=== PATIENT | female | born 1995 | race Hispanic/Latino ===

== ENCOUNTER 2024-12-04 14:54 | Emergency (ER) | payer OTHER ==
[~2024-12-04] VITALS: Ht 157.5 cm; Wt 64.3 kg
[2024-12-04] MEDS ORDERED: HOME MED LIST COMPLETE! XX SCH (15:35)
[2024-12-04 16:00] LABS: BASO # 0.1 10^3/uL (0.0-0.2); BASO % 1.0 % (0.0-1.0); EOS # 0.3 10^3/uL (0.0-0.5); EOS % 3.9 % (0.0-3.0); LYMPH # 2.8 10^3/uL (1.5-5.0); LYMPH % 39.0 % (24.0-44.0); MONO # 0.5 10^3/uL (0.0-0.8); MONO % 6.2 % (2.0-8.0); NEUTROPHILS # 3.6 10^3/uL (1.5-8.5); NEUTROPHILS % 49.8 % (36.0-66.0); PLATELET COUNT, AUTOMATED 318 10^3/uL (150-450)
[2024-12-04 16:31] LABS: CALCIUM LEVEL 9.7 MG/DL (8.5-10.1); CARBON DIOXIDE LEVEL 29 MMOL/L (20-31); CHLORIDE LEVEL 101 MMOL/L (98-107); CK-MB VALUE MASS 1.5 NG/ML (<3.6); CREATININE FOR GFR 0.72 MG/DL (0.55-1.30); GLOMERULAR FILTRATION RATE > 90.0 (>60); POTASSIUM SERUM 4.3 MMOL/L (3.5-5.1); SODIUM LEVEL 137 MMOL/L (136-145)
[2024-12-04 16:33] LABS: CPK CREATINE PHOSPHOKINASE 113 U/L (34-145); MB/CK RELATIVE INDEX 1.32 (< OR =4)
[2024-12-04] MEDS ORDERED: MEDR4PAK PO (17:26)
[2024-12-04 17:31] VITALS: BP 100/62; TEMP 97; O2SAT 100
== END 2024-12-04 17:42 | disposition home or self-care (01) ==
LOC: M ED 14:54
DX: R07.9 Chest pain, unspecified (principal); R00.1 Bradycardia, unspecified; Z79.899 Other long term (current) drug therapy